=== PATIENT | male | born 1945 | race Two or more races ===

== ENCOUNTER 2018-12-30 10:47 | Inpatient (IN) | payer MEDICARE, OTHER ==
[~2018-12-30] VITALS: Ht 170.2 cm; Wt 112.5 kg
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
[2018-12-30] MEDS ORDERED: IBUPROFEN 600 MG TABLET PO ONE ×2 (12:30→13:00)
--- NOTE | 2018-12-30 12:33 | NUR ---
MOTRIN 600MG GIVEN PO, PER MD ORDER
--- NOTE | 2018-12-30 12:45 | NUR ---
PT TAKEN TO CT VIA [facility]
--- NOTE | 2018-12-30 13:09 | NUR ---
PT BACK FROM [facility]. [facility]. WILL CONT TO MONITOR.
[2018-12-30 15:07] LABS: CALCIUM, SERUM 9.2 mg/dL (8.5-10.1); CARBON DIOXIDE 26 mmol/L (21-32); CHLORIDE 108 mmol/L (98-107); CREATININE 1.1 mg/dL (0.6-1.3); GLUCOSE 99 mg/dL (74-106); POTASSIUM 4.3 mmol/L (3.5-5.1); SODIUM SERUM 139 mmol/L (136-145); UREA NITROGEN, BLOOD 18 mg/dL (7-18)
[2018-12-30 15:19] LABS: B-TYPE NATRIURETIC PEPTIDE 1169 PG/ML (0-125)
[2018-12-30 15:35] LABS: BASOPHILS # (AUTO) 0.1 /CMM (0.0-0.2); BASOPHILS % (AUTO) 1.4 % (0.0-2.0); EOSINOPHILS % (AUTO) 2.8 % (0.0-6.0); HEMATOCRIT 44 % (39-51); HEMOGLOBIN 14.7 g/dL (13.5-17.5); LYMPHOCYTES # (AUTO) 2.6 /CMM (0.8-4.8); LYMPHOCYTES % (AUTO) 33.9 % (20.0-44.0); MEAN CORPUSCULAR HGB CONC 34 g/dl (31.0-36.0); MEAN CORPUSCULAR VOLUME 94 fL (80-96); MONOCYTES # (AUTO) 0.7 /CMM (0.1-1.30); MONOCYTES % (AUTO) 9.7 % (2.0-12.0); NEUTROPHILS % (AUTO) 52.2 % (43.0-81.0); PLATELET COUNT (AUTO) 226 /CMM (150-450); RED BLOOD CELL COUNT(AUTO) 4.65 MIL/uL (4.5-6.0); WHITE BLOOD COUNT (AUTO) 7.7 K/uL (4.3-11.0)
[2018-12-30 15:56] LABS: D-DIMER 0.52 mg/L(FEU (0.17-0.50)
--- NOTE | 2018-12-30 15:59 | NUR ---
PT RESTING COMFORTABLY IN BED, NO COMPLAINTS AT THIS TIME. SPOKE WITH IVELISSE AT [facility] PER PT REQUEST. LET HIM KNOW PT IS HERE AND WE WILL KEEP HIM UPDATED.
[2018-12-30 16:05] LABS: THYROID STIMULATING HORMONE 0.441 uIU/mL (0.358-3.74)
--- NOTE | 2018-12-30 16:55 | NUR ---
BED 111-2 TELE
--- NOTE | 2018-12-30 16:59 | NUR ---
CALLED [facility] FOR PANEL, DR SHAH PAGED @[phone]
--- NOTE | 2018-12-30 17:06 | NUR ---
PROVIDED FOOD TRAY
[2018-12-30] MEDS ORDERED: ASPIRIN 81 MG TAB.CHEW PO ONE (17:30)
[2018-12-30] MEDS ORDERED: FUROSEMIDE 40 MG/4 ML VIAL IV ONE (17:30)
[2018-12-30] MEDS ORDERED: FUROSEMIDE 40 MG/4 ML VIAL ONE (18:20)
[2018-12-30] MEDS ORDERED: ASPIRIN 81 MG TAB.CHEW ONE (18:20)
--- NOTE | 2018-12-30 18:36 | NUR ---
PT TRANSFERRED TO FLOOR AND BEDSIDE REPORT GIVEN TO EVA FOR LARISA.
--- NOTE | 2018-12-30 18:38 | NUR ---
REBAR WORKER NOTES BEDSIDE REPORT GIVEN FROM NURSE AYAKA CASTAÑEDA. PATIENT ARRIVED VIA [facility] IN ROOM. C/O PAIN 6/10 TO NECK BACK. A/O X4 NO SIGNS OR SYMPTOMS OF RESPIRATORY DISTRESS VITAL SIGNS BP 128/81 HR 65 O2 96% T 98.1 RR 18 . TELE BOX APPLIED HEAT PACK GIVEN FOR NECK DISCOMFORT. SAFETY PRECAUTIONS IN PLACE BED IN LOW POSITION CALL LIGHT WITHIN REACH . WILL ENDORSE TO NOC
--- NOTE | 2018-12-30 18:42 | NUR ---
dr. treadwell notified regarding admission order.
[2018-12-30] MEDS ORDERED: ONDANSETRON HCL/PF 4 MG/2 ML VIAL IVP PRN (19:00)
[2018-12-30] MEDS ORDERED: MORPHINE SULFATE INJ 2 MG/ML DISP.SYRIN IV PRN (19:00)
[2018-12-30] MEDS ORDERED: NITROGLYCERIN 0.4 MG/TAB BOTTLE SL PRN (19:00)
--- NOTE | 2018-12-30 19:06 | NUR ---
MAINTAINER PLANT CLOSING NOTES REPORT GIVEN TO NOC RN. ORDERS FROM DR FERGUSON ENDORSED. LARISA
[2018-12-30 20:00] VITALS: BP 119/86
[2018-12-30] MEDS: METOPROLOL TARTRATE 25 MG TABLET PO SCH (20:36)
[2018-12-31] VITALS (7 sets, daily range): BP systolic 99–145; BP diastolic 54–87
[2018-12-31] MEDS ORDERED: ZOLPIDEM TARTRATE 5 MG TABLET PO PRN (01:00)
[2018-12-31] MEDS: MENTHOL/CETYLPYRD (CEPACOL) 1 LOZ LOZENGE PO PRN ×2 (01:01→11:24)
[2018-12-31] MEDS: HYDROCODONE/APAP 5/325MG 1 EACH TABLET PO PRN ×4 (01:01→20:36)
[2018-12-31 02:59] LABS: BASOPHILS # (AUTO) 0.1 /CMM (0.0-0.2); BASOPHILS % (AUTO) 1.1 % (0.0-2.0); EOSINOPHILS % (AUTO) 3.7 % (0.0-6.0); HEMATOCRIT 40 % (39-51); HEMOGLOBIN 13.8 g/dL (13.5-17.5); LYMPHOCYTES # (AUTO) 2.3 /CMM (0.8-4.8); LYMPHOCYTES % (AUTO) 34.8 % (20.0-44.0); MEAN CORPUSCULAR HGB CONC 34 g/dl (31.0-36.0); MEAN CORPUSCULAR VOLUME 92 fL (80-96); MONOCYTES # (AUTO) 0.8 /CMM (0.1-1.30); MONOCYTES % (AUTO) 12.7 % (2.0-12.0); NEUTROPHILS # (AUTO) 3.2 /CMM (1.8-8.9); NEUTROPHILS % (AUTO) 47.7 % (43.0-81.0); PLATELET COUNT (AUTO) 220 /CMM (150-450); RED BLOOD CELL COUNT(AUTO) 4.35 MIL/uL (4.5-6.0); WHITE BLOOD COUNT (AUTO) 6.7 K/uL (4.3-11.0)
[2018-12-31 03:10] LABS: CALCIUM, SERUM 8.9 mg/dL (8.5-10.1); CARBON DIOXIDE 25 mmol/L (21-32); CHLORIDE 106 mmol/L (98-107); GLUCOSE 102 mg/dL (74-106); MAGNESIUM 1.9 mg/dL (1.8-2.4); POTASSIUM 4.1 mmol/L (3.5-5.1); SODIUM SERUM 142 mmol/L (136-145); UREA NITROGEN, BLOOD 22 mg/dL (7-18)
--- NOTE | 2018-12-31 07:10 | NUR ---
ECONOMICS FACULTY MEMBER OPENING NOTES RECEIVED PT LYING ON BED.ALERT/ORIENTED X4.ON TELE HR IS 86 WITH SR.ON ROOM AIR,TOLERATING WELL.NO SOB AND ACUTE DISTRESS NOTED.IV LINE IS ON LEFT AC G20,SITE IS CLEAN,DRY AND INTACT.NO INFILTRATION NOTED.SAFETY IS MAINTAINED AT ALL TIMES.BED IS IN LOW POSITION AND LOCKED.CALL LIGHT IS WITHIN REACH.WILL CONTINUE TO MONITOR THE PT CLOSELY.
[2018-12-31] MEDS: ASPIRIN 81 MG TAB.CHEW PO SCH (08:07)
[2018-12-31] MEDS: METOPROLOL TARTRATE 25 MG TABLET PO SCH (08:07)
[2018-12-31] MEDS: FUROSEMIDE 40 MG/4 ML VIAL IV SCH (11:15)
[2018-12-31] MEDS ORDERED: GABA-534 PO (14:35)
[2018-12-31] MEDS ORDERED: BUSP10TA3 PO (14:35)
[2018-12-31] MEDS ORDERED: FERR325T23 PO (14:35)
[2018-12-31] MEDS ORDERED: ASPI-1169 PO (14:35)
[2018-12-31] MEDS ORDERED: ESOM40CA PO (14:35)
[2018-12-31] MEDS ORDERED: LEVO150T8 PO (14:35)
[2018-12-31] MEDS ORDERED: FLUT1BLS IH (14:35)
[2018-12-31] MEDS ORDERED: METO50TA16 PO (14:35)
[2018-12-31] MEDS ORDERED: ATOR20TA PO (14:35)
[2018-12-31] MEDS ORDERED: CLON1TAB12 PO (14:36)
[2018-12-31] MEDS ORDERED: LEVOTHYROXINE SODIUM 75 MCG TABLET PO SCH (15:00)
[2018-12-31] MEDS ORDERED: GABAPENTIN 300 MG CAPSULE PO SCH (15:00)
[2018-12-31] MEDS: FLUTICASONE/VILANTEROL 1 EACH BLST.W.DEV IH SCH (16:07)
[2018-12-31] MEDS: busPIRone 5 MG TABLET PO SCH (16:11)
[2018-12-31] MEDS: PANTOPRAZOLE 40 MG TABLET.DR PO SCH (16:11)
[2018-12-31] MEDS: METOPROLOL TARTRATE 50 MG TABLET PO SCH (16:11)
[2018-12-31] MEDS ORDERED: IOHEXOL-350 100 ML VIAL IV ONE (16:45)
[2018-12-31] MEDS ORDERED: IV NS 0.9% 250 ML IV ONE (16:46)
[2018-12-31] MEDS ORDERED: CT SWABBABLE VALVE TRANS SET 1 EA INFUS.SET MC ONE (16:46)
[2018-12-31] MEDS ORDERED: METOPROLOL TARTRATE INJ 5 MG/5 ML AMPUL IVP ONE (17:00)
[2018-12-31] MEDS ORDERED: NITROGLYCERIN 0.4 MG/TAB BOTTLE SL ONE (17:00)
[2018-12-31] MEDS ORDERED: IV NS 0.9% 500 ML IV PRN (17:00)
--- NOTE | 2018-12-31 17:44 | NUR ---
started CTA, given 5 mg of metoprolol, were having problem on the machine dynamap re: HR fluctuating from 60's to 80's. about to give second dose of metoprolol 5 mg, but decided not to do it anymore by [employer] and notified jovanni Hernandez, wasted 5mg of metoprolol Addendum: 12/31/18 at 1748 by HERNAN NATHAN RN Amended: Links added.
--- NOTE | 2018-12-31 17:56 | NUR ---
172. started CTA with 5 mg of metoprolol, about to give second dose of metoprolol at 172 when the dynamap from CT havinf problem with the HR, fluctuating from 60's to 80's. [employer] notifoed the radiology doctor and JIL urby and decided not to do it/ not to finish the test. they notified biomed to fix the dynamap and maybe they can do the test tomorrow. wasted 5 mg of metoprolol.
--- NOTE | 2018-12-31 17:59 | NUR ---
ABOUT TO START THE CTA HEART SCAN AND WE'RE HAVING ECG MALFUNCTION, INFORMED NURSING ASSISTANT SIGNAL MAINTAINER (MARIE) AND THE NURSE (FAITH).
--- NOTE | 2018-12-31 18:55 | NUR ---
ORNAMENTAL PLASTERER HELPER CLOSING NOTES PT IS LYING ON BED.NO LARISA IS NOTED.ENDORSED TO FOOTWEAR PRODUCTION MACHINE OPERATOR RN FOR LARISA.
[2018-12-31] MEDS: GABAPENTIN 300 MG CAPSULE PO SCH (20:36)
[2018-12-31] MEDS: ATORVASTATIN 10 MG TABLET PO SCH (20:47)
[2018-12-31] MEDS ORDERED: MAGNESIUM HYDROXIDE 30 ML UDC PO PRN (21:00)
[2018-12-31] MEDS ORDERED: MAG HYDROX/AL HYDROX/SIMETH 30 ML UDC PO PRN (21:30)
[2019-01-01] VITALS: BP 133/79
[2019-01-01 04:00] VITALS: BP 118/70
[2019-01-01] MEDS: LEVOTHYROXINE SODIUM 75 MCG TABLET PO SCH (05:55)
[2019-01-01] MEDS: GABAPENTIN 300 MG CAPSULE PO SCH ×2 (07:22→20:41)
[2019-01-01] MEDS: PANTOPRAZOLE 40 MG TABLET.DR PO SCH (07:22)
--- NOTE | 2019-01-01 07:30 | NUR ---
INITIAL RECEIVED PATIENT IN BED AWAKE, A&Ox4 PT ON TIMOTHY AFIB HR 99. PATIENT DOING SELF CARE, HAS A LEFT FORE ARM 20G , INTACT PATENT AND SALINE FLUSHED. PATIENT ASKED TO GIVE BATHING UTILITIES. LINEN CHANGED WITH NEW GOWN. . BED LOCKED AND ON LOW POSITION. CALL LIGHT WITHIN REACH. WILL CONTINUE TO MONITOR
[2019-01-01 08:00] VITALS: BP 99/78
[2019-01-01] MEDS ORDERED: ASPIRIN 81 MG TAB.CHEW PO SCH (09:00)
[2019-01-01] MEDS: FLUTICASONE/VILANTEROL 1 EACH BLST.W.DEV IH SCH (09:42)
[2019-01-01] MEDS: ASPIRIN 81 MG TAB.CHEW PO SCH (09:43)
[2019-01-01] MEDS: FUROSEMIDE 40 MG/4 ML VIAL IV SCH (09:43)
[2019-01-01] MEDS: busPIRone 5 MG TABLET PO SCH ×2 (09:44→17:53)
[2019-01-01] MEDS: METOPROLOL TARTRATE 50 MG TABLET PO SCH ×2 (09:45→17:53)
[2019-01-01 12:00] VITALS: BP 127/57
[2019-01-01 16:00] VITALS: BP 100/65
[2019-01-01] MEDS: ATORVASTATIN 10 MG TABLET PO SCH (17:53)
--- NOTE | 2019-01-01 19:15 | NUR ---
TELE/RN INITIAL NOTES RECEIVED PT IN BED, A/OX4. ON ROOM AIR, NO SOB NOTED. AFIB HR 70S ON TELE. NO C/O PAIN AT THIS TIME. LEFT AC G20 HEPLOCK INTACT AND PATENT. SAFETY MEASURES IN PLACED. CALL LIGHT WITHIN EASY REACH. WILL CONT TO MONITOR
[2019-01-01 20:00] VITALS: BP 118/70
[2019-01-01] MEDS: HYDROCODONE/APAP 5/325MG 1 EACH TABLET PO PRN (20:41)
[2019-01-01] MEDS: MENTHOL/CETYLPYRD (CEPACOL) 1 LOZ LOZENGE PO PRN (20:41)
[2019-01-01] MEDS: clonazePAM 1 MG TABLET PO PRN (23:41)
[2019-01-02] VITALS: BP 118/63
[2019-01-02 04:00] VITALS: BP 119/80
[2019-01-02] MEDS: LEVOTHYROXINE SODIUM 75 MCG TABLET PO SCH (06:13)
--- NOTE | 2019-01-02 06:43 | NUR ---
RN NOTES PT IN STABLE CONDITION. NO ACUTE CHANGES THROUGHOUT SHIFT NOTED. ALL NEEDS ANTICIPATED. ENDORSED TO AM SHIFT RN FOR LARISA
[2019-01-02] MEDS: GABAPENTIN 300 MG CAPSULE PO SCH ×2 (07:46→19:57)
[2019-01-02] MEDS: PANTOPRAZOLE 40 MG TABLET.DR PO SCH (07:46)
[2019-01-02 08:00] VITALS: BP_SYST 126; BP_DIAS 80; BP_DIAS 90
[2019-01-02] MEDS: FLUTICASONE/VILANTEROL 1 EACH BLST.W.DEV IH SCH (09:01)
[2019-01-02] MEDS: METOPROLOL TARTRATE 50 MG TABLET PO SCH ×2 (09:02→16:16)
[2019-01-02] MEDS: ASPIRIN 81 MG TAB.CHEW PO SCH (09:02)
[2019-01-02] MEDS: busPIRone 5 MG TABLET PO SCH ×2 (09:02→16:16)
[2019-01-02] MEDS: FUROSEMIDE 40 MG/4 ML VIAL IV SCH (09:02)
[2019-01-02 12:00] VITALS: BP 102/58
--- NOTE | 2019-01-02 14:01 | NUR ---
TEXTED DR. RAMIREZ FOR MRI APPROVAL.
[2019-01-02 16:00] VITALS: BP 115/63
[2019-01-02] MEDS: ATORVASTATIN 10 MG TABLET PO SCH (18:38)
[2019-01-02] MEDS: MENTHOL/CETYLPYRD (CEPACOL) 1 LOZ LOZENGE PO PRN (19:57)
[2019-01-02 20:00] VITALS: BP 105/70
--- NOTE | 2019-01-02 20:10 | NUR ---
MS-1/PATIENT SERVICES TECHNICIAN PT OFF FLOOR TO MRA WITH MRA TECH.
--- NOTE | 2019-01-02 20:24 | NUR ---
MS-1/LITIGATION EXAMINER PT BACK FROM MRA. PER MRA TECH PT IS TO LARGE TO COMPLETE SCAN. WILL ENDORSE TO WATCHER LOOKOUT TOWER MD. PT BACK IN BED.
[2019-01-02] MEDS: HYDROCODONE/APAP 5/325MG 1 EACH TABLET PO PRN (22:12)
[2019-01-02] MEDS: clonazePAM 1 MG TABLET PO PRN (22:12)
[2019-01-03 04:00] VITALS: BP_SYST 111; BP_SYST 130; BP_DIAS 60; BP_DIAS 80
[2019-01-03] MEDS: LEVOTHYROXINE SODIUM 75 MCG TABLET PO SCH (06:21)
--- NOTE | 2019-01-03 07:15 | NUR ---
MS RN OPENING NOTES RECEIVED PT LYING ON BED.ALERT/ORIENTED X4.ON ROOM AIR,TOLERATING WELL.NO SOB AND ACUTE DISTRESS NOTED.IV LINE IS ON LEFT AC G20,SITE IS CLEAN,DRY AND INTACT.NO INFILTRATION NOTED.SAFETY IS MAINTAINED AT ALL TIMES.BED IS IN LOW POSITION AND LOCKED.CALL LIGHT IS WITHIN REACH.WILL CONTINUE TO MONITOR THE PT CLOSELY
[2019-01-03] MEDS: PANTOPRAZOLE 40 MG TABLET.DR PO SCH (07:42)
[2019-01-03 08:00] VITALS: BP 117/65
[2019-01-03] MEDS: GABAPENTIN 300 MG CAPSULE PO SCH ×2 (08:16→20:45)
[2019-01-03] MEDS: FUROSEMIDE 40 MG/4 ML VIAL IV SCH (08:51)
[2019-01-03] MEDS: busPIRone 5 MG TABLET PO SCH ×2 (08:51→17:53)
[2019-01-03] MEDS: FLUTICASONE/VILANTEROL 1 EACH BLST.W.DEV IH SCH (08:52)
[2019-01-03] MEDS: ASPIRIN 81 MG TAB.CHEW PO SCH (08:52)
[2019-01-03] MEDS: METOPROLOL TARTRATE 50 MG TABLET PO SCH ×2 (08:52→17:53)
[2019-01-03 16:00] VITALS: BP 113/66
[2019-01-03] MEDS: MENTHOL/CETYLPYRD (CEPACOL) 1 LOZ LOZENGE PO PRN (18:17)
[2019-01-03] MEDS: ATORVASTATIN 10 MG TABLET PO SCH (18:17)
--- NOTE | 2019-01-03 18:58 | NUR ---
MS RN CLOSING NOTES PT IS SITTING ON THE BED.IV LINE IS IN PLACE.ALL THE DUE MEDS ARE GIVEN.NO SIGNIFICANT CHANGES NOTED IN THE SHIFT.ENDORSED TO NEXT SHIFT MADDY PERES.
[2019-01-03 20:00] VITALS: BP 125/75
[2019-01-03 20:23] VITALS: BP 125/75
[2019-01-03] MEDS: clonazePAM 1 MG TABLET PO PRN (20:58)
[2019-01-03] MEDS: HYDROCODONE/APAP 5/325MG 1 EACH TABLET PO PRN (22:04)
[2019-01-04 04:00] VITALS: BP 130/80
[2019-01-04 04:05] VITALS: BP 130/80
[2019-01-04] MEDS: LEVOTHYROXINE SODIUM 75 MCG TABLET PO SCH (05:38)
--- NOTE | 2019-01-04 06:30 | NUR ---
MS RN CLOSING NOTES, PATIENT SLEEPING AT THIS TIME, BREATHING EVEN AND UNLABORED, NO SOB/ACUTE DISTRESS NOTED, NO C/O CHEST PAIN OR DISCOMFORT, IV LINE LEFT AC 20G S/L IS IN PLACE, ALL NEEDS PROVIDED, NO SIGNIFICANT CHANGE IN CONDITION DURING THE NIGHT, WILL ENDORSE CONTINUITY OF CARE TO ONCOMING NURSE.
--- NOTE | 2019-01-04 07:00 | NUR ---
MS RN OPENING NOTES RECEIVED PT LYING ON BED. ALERT/ORIENTED X4. ON ROOM AIR, TOLERATING WELL. NO SOB AND ACUTE DISTRESS NOTED. PATIENT REPORTED NO PAIN. IV LINE IS ON LEFT AC G20, SITE IS CLEAN, DRY AND INTACT. NO INFILTRATION NOTED. SAFETY IS MAINTAINED AT ALL TIMES. BED IS IN LOW POSITION AND LOCKED. CALL LIGHT IS WITHIN REACH. WILL CONTINUE TO MONITOR THE PT CLOSELY.
[2019-01-04 08:00] VITALS: BP 137/70
[2019-01-04] MEDS: PANTOPRAZOLE 40 MG TABLET.DR PO SCH (08:41)
[2019-01-04] MEDS: GABAPENTIN 300 MG CAPSULE PO SCH ×2 (09:00→20:36)
[2019-01-04] MEDS: busPIRone 5 MG TABLET PO SCH ×2 (09:45→16:18)
[2019-01-04] MEDS: FUROSEMIDE 40 MG/4 ML VIAL IV SCH (09:45)
[2019-01-04] MEDS: ASPIRIN 81 MG TAB.CHEW PO SCH (09:45)
[2019-01-04] MEDS: METOPROLOL TARTRATE 50 MG TABLET PO SCH ×2 (09:45→17:10)
[2019-01-04] MEDS: FLUTICASONE/VILANTEROL 1 EACH BLST.W.DEV IH SCH (09:45)
[2019-01-04] MEDS ORDERED: IOHEXOL-350 100 ML VIAL IV ONE (09:51)
[2019-01-04] MEDS ORDERED: IV NS 0.9% 250 ML IV ONE (09:51)
[2019-01-04 12:00] VITALS: BP 137/70
[2019-01-04 16:00] VITALS: BP 125/65
[2019-01-04] MEDS: HYDROCODONE/APAP 5/325MG 1 EACH TABLET PO PRN (16:18)
[2019-01-04] MEDS: ATORVASTATIN 10 MG TABLET PO SCH (17:13)
--- NOTE | 2019-01-04 19:20 | NUR ---
MS RN CLOSING NOTES PT RESTING IN BED. ALERT/ORIENTED X4. ON ROOM AIR, TOLERATING WELL. NO SOB AND ACUTE DISTRESS NOTED. PATIENT REPORTED NO PAIN. IV LINE IS ON LEFT AC G20, SITE IS CLEAN, DRY AND INTACT. NO INFILTRATION NOTED. SAFETY WAS MAINTAINED AT ALL TIMES. BED IS IN LOW POSITION AND LOCKED. CALL LIGHT IS WITHIN REACH. NO ACUTE CHANGES THROUGHOUT SHIFT. ENDORSED TO ANIMAL NURSE NURSE FOR LARISA.
--- NOTE | 2019-01-04 19:58 | NUR ---
MS RN INITIAL NOTES, PATIENT AWAKE, A/O X4 ABLE TO VERBALIZED NEEDS AND CONCERNS, , BREATHING EVEN AND UNLABORED, NO SOB/ACUTE DISTRESS NOTED, NO C/O CHEST PAIN OR DISCOMFORT, IV LINE LEFT AC 20G S/L IS IN PLACE, ALL NEEDS PROVIDED, WILL BE NPO AFTER MIDNIGHT FOR CT ANGIOGRAM IN THE MORNING, INFORMED PATIENT AND VERBALIZED UNDERSTANDING, ALL SAFETY MEASURES IN PLACED, BE LOCKED AN D LOW POSITION, CALL LIGHT W/I REACH, WILL CONTINUE TO MONITOR CLOSELY.
[2019-01-04 20:00] VITALS: BP 118/97
[2019-01-04] MEDS: clonazePAM 1 MG TABLET PO PRN (20:35)
[2019-01-05 04:00] VITALS: BP 112/73
[2019-01-05] MEDS: LEVOTHYROXINE SODIUM 75 MCG TABLET PO SCH (05:35)
--- NOTE | 2019-01-05 06:26 | NUR ---
MS RN CLOSING NOTES, PATIENT SLEEPING AT THIS TIME, BREATHING EVEN AND UNLABORED, NO SOB/ACUTE DISTRESS NOTED, NO C/O CHEST PAIN OR DISCOMFORT, IV LINE LEFT AC 20G S/L IS IN PLACE, ALL NEEDS PROVIDED, NO SIGNIFICANT CHANGE IN CONDITION DURING THE NIGHT, NPO SINCE MIDNIGHT FOR CT ANGIOGRAM IN AM, WILL ENDORSE CONTINUITY OF CARE TO ONCOMING NURSE.
[2019-01-05] MEDS: PANTOPRAZOLE 40 MG TABLET.DR PO SCH (07:30)
--- NOTE | 2019-01-05 07:45 | NUR ---
MS RN OPENING NOTE RECEIVED PATIENT IN BED. ALERT ORIENTED X4. ON ROOM AIR, TOLERATING WELL. IN NO APPARENT DISTRESS OR DISCOMFORT AT THIS TIME. RESPIRATIONS EVEN AND UNLABORED. DENIES CHEST PAIN OR SOB. PATIENT IS ABLE TO COMMUNICATE NEEDS. IV ACCESS ON LEFT AC, SL, PATENT AND INTACT. PATIENT KEPT CLEAN AND COMFORTABLE, NPO STATUS. SAFETY MEASURES IN PLACE, BED IN LOW LOCKED POSITION SIDE RAILS UP X2, CALL LIGHT WITHIN EASY REACH. WILL CONTINUE TO MONITOR.
[2019-01-05 08:00] VITALS: BP 122/66
[2019-01-05] MEDS: GABAPENTIN 300 MG CAPSULE PO SCH ×2 (08:00→20:59)
[2019-01-05] MEDS: ASPIRIN 81 MG TAB.CHEW PO SCH (09:00)
[2019-01-05] MEDS: busPIRone 5 MG TABLET PO SCH ×2 (09:00→17:23)
[2019-01-05] MEDS: METOPROLOL TARTRATE 50 MG TABLET PO SCH ×2 (09:00→17:23)
[2019-01-05] MEDS: FLUTICASONE/VILANTEROL 1 EACH BLST.W.DEV IH SCH (09:26)
[2019-01-05] MEDS: FUROSEMIDE 40 MG/4 ML VIAL IV SCH (09:26)
[2019-01-05] MEDS ORDERED: REGADENOSON 0.4 MG/5 ML DISP.SYRIN IVP ONE (11:00)
[2019-01-05 16:00] VITALS: BP 115/67
[2019-01-05] MEDS: HYDROCODONE/APAP 5/325MG 1 EACH TABLET PO PRN (17:23)
[2019-01-05] MEDS: ATORVASTATIN 10 MG TABLET PO SCH (17:23)
--- NOTE | 2019-01-05 18:31 | NUR ---
MS RN CLOSING NOTE PATIENT IN BED. ALERT ORIENTED X4. ON ROOM AIR, TOLERATING WELL. IN NO APPARENT DISTRESS OR DISCOMFORT AT THIS TIME. RESPIRATIONS EVEN AND UNLABORED. DENIES CHEST PAIN OR SOB. PATIENT IS ABLE TO COMMUNICATE NEEDS. IV ACCESS ON LEFT AC 20G, SL, PATENT AND INTACT. PATIENT KEPT CLEAN AND COMFORTABLE, ALL NEEDS ATTENDED, ORDERS RENDERED. SAFETY MEASURES IN PLACE, BED IN LOW LOCKED POSITION SIDE RAILS UP X2, CALL LIGHT WITHIN EASY REACH. WILL ENDORSE TO PM NURSE FOR LARISA.
[2019-01-05 20:00] VITALS: BP 113/75
[2019-01-05] MEDS: clonazePAM 1 MG TABLET PO PRN (20:59)
[2019-01-06 04:00] VITALS: BP 104/70
[2019-01-06] MEDS: LEVOTHYROXINE SODIUM 75 MCG TABLET PO SCH (06:01)
--- NOTE | 2019-01-06 06:15 | NUR ---
MS RN CLOSING NOTES, PATIENT SLEEPING AT THIS TIME, BREATHING EVEN AND UNLABORED, NO SOB/ACUTE DISTRESS NOTED, NO C/O CHEST PAIN OR DISCOMFORT, IV LINE LEFT AC 20G S/L IN PLACE, ALL NEEDS PROVIDED, NO SIGNIFICANT CHANGE IN CONDITION DURING THE NIGHT, NPO SINCE MIDNIGHT FOR POSSIBLE CT ANGIOGRAM IN AM, WILL ENDORSE CONTINUITY OF CARE TO ONCOMING NURSE.
--- NOTE | 2019-01-06 07:00 | NUR ---
RECEIVED PATIENT IN BED. ALERT ORIENTED X4. ON ROOM AIR, TOLERATING WELL. RESPIRATIONS EVEN AND UNLABORED. DENIES CHEST PAIN OR SOB. PATIENT IS ABLE TO COMMUNICATE NEEDS. IV ACCESS ON LEFT AC, SL, PATENT AND INTACT FLUSHING WELL. NPO STATUS EOR POSSIBLE PROCEDURE. SAFETY MEASURES IN PLACE, BED IN LOW LOCKED POSITION SIDE RAILS UP X2, CALL LIGHT WITHIN EASY REACH.PT AMBULATORY. WILL CONTINUE TO MONITOR
[2019-01-06 08:00] VITALS: BP 122/66
[2019-01-06] MEDS: ASPIRIN 81 MG TAB.CHEW PO SCH (08:16)
[2019-01-06] MEDS: busPIRone 5 MG TABLET PO SCH ×2 (08:17→17:38)
[2019-01-06] MEDS: GABAPENTIN 300 MG CAPSULE PO SCH ×2 (08:17→20:20)
[2019-01-06] MEDS: METOPROLOL TARTRATE 50 MG TABLET PO SCH ×2 (08:18→17:37)
[2019-01-06] MEDS: FUROSEMIDE 40 MG/4 ML VIAL IV SCH (08:18)
[2019-01-06] MEDS: PANTOPRAZOLE 40 MG TABLET.DR PO SCH (08:18)
[2019-01-06] MEDS: FLUTICASONE/VILANTEROL 1 EACH BLST.W.DEV IH SCH (08:26)
[2019-01-06] MEDS ORDERED: IOHEXOL-350 100 ML VIAL IV ONE (12:30)
[2019-01-06] MEDS ORDERED: CT SWABBABLE VALVE TRANS SET 1 EA INFUS.SET MC ONE (12:30)
[2019-01-06] MEDS ORDERED: IV NS 0.9% 500 ML IV ONE (12:31)
[2019-01-06 16:00] VITALS: BP 109/62
[2019-01-06] MEDS: ATORVASTATIN 10 MG TABLET PO SCH (17:37)
[2019-01-06] MEDS: MENTHOL/CETYLPYRD (CEPACOL) 1 LOZ LOZENGE PO PRN (18:42)
[2019-01-06] MEDS: DOCUSATE SODIUM 100 MG CAPSULE PO SCH (18:42)
--- NOTE | 2019-01-06 19:00 | NUR ---
PATIENT IN BED, WATCHING TV. ALL NEEDS ATTENDED . NO CHANGES DURING THE SHIFT. POSSSIBLE D/C TOMORROW. SAFETY PRECAUTIONS OBSERVED. WILL ENDORSE TO NEXT SHIFT FOR LARISA.
[2019-01-06 20:00] VITALS: BP 122/69
[2019-01-06] MEDS: clonazePAM 1 MG TABLET PO PRN (21:29)
[2019-01-06] MEDS: HYDROCODONE/APAP 5/325MG 1 EACH TABLET PO PRN (22:25)
[2019-01-07 04:00] VITALS: BP_SYST 122; BP_SYST 95; BP_DIAS 65; BP_DIAS 72
[2019-01-07] MEDS: LEVOTHYROXINE SODIUM 75 MCG TABLET PO SCH (06:20)
--- NOTE | 2019-01-07 07:20 | NUR ---
MS RN NOTES PATIENT IN BED ALERT ORIENTED X 4. NO ACUTE DISTRESS NOTED. BREATHING UNLABORED. NO SOB NOTED. DENIED ANY PAIN. IV ACCESS PATENT AND INTACT, NO REDNESS NO SWELLING NOTED. SAFETY MEASURES IN PLACE. CALL LIGHT WITHIN REACH. WILL CONTINUE TO MONITOR ACCORDINGLY.
[2019-01-07 08:00] VITALS: BP 107/77
[2019-01-07] MEDS: PANTOPRAZOLE 40 MG TABLET.DR PO SCH (08:14)
[2019-01-07] MEDS: DOCUSATE SODIUM 100 MG CAPSULE PO SCH ×2 (08:14→17:00)
[2019-01-07] MEDS: busPIRone 5 MG TABLET PO SCH ×2 (08:14→17:08)
[2019-01-07] MEDS: GABAPENTIN 300 MG CAPSULE PO SCH (08:14)
[2019-01-07] MEDS: ASPIRIN 81 MG TAB.CHEW PO SCH (08:14)
[2019-01-07] MEDS: METOPROLOL TARTRATE 50 MG TABLET PO SCH ×2 (08:15→17:09)
[2019-01-07] MEDS: FUROSEMIDE 40 MG/4 ML VIAL IV SCH (08:15)
[2019-01-07] MEDS: FLUTICASONE/VILANTEROL 1 EACH BLST.W.DEV IH SCH (09:17)
[2019-01-07 12:00] VITALS: BP 128/76
[2019-01-07] MEDS: HYDROCODONE/APAP 5/325MG 1 EACH TABLET PO PRN ×2 (13:28→20:12)
--- NOTE | 2019-01-07 13:29 | NUR ---
RN NOTE NURSE ON BREAK, RN RELIVING NURSE GAVE PAIN MEDICATION PER MD ORDER. PATIENTS NURSE AWARE.
[2019-01-07 16:00] VITALS: BP 120/61
[2019-01-07] MEDS: ATORVASTATIN 10 MG TABLET PO SCH (17:08)
[2019-01-07 17:09] VITALS: BP 120/61
--- NOTE | 2019-01-07 19:00 | NUR ---
MS RN NOTES PATIENT IN BED ALERT ORIENTED X 4. NO ACUTE DISTRESS NOTED. BREATHING UNLABORED. NO SOB NOTED. DENIED ANY PAIN. IV ACCESS PATENT AND INTACT, NO REDNESS NO SWELLING NOTED. DUE MEDICATIONS GIVEN, NO ASE NOTED. NEEDS ATTENDED AND ANTICIPATED. KEPT CLEAN DRY AND COMFORTABLE. SAFETY MEASURES IN PLACE. CALL LIGHT WITHIN REACH. PATIENT FOR DISCHARGE AWAITING FOR TRANSPORTATION. REPORT GIVEN TO DIMITRI CASTAÑEDA OF [facility]. ENDORSED TO NIGHT NURSE TO CONTINUITY OF CARE AND DISCHARGE.
--- NOTE | 2019-01-07 20:00 | NUR ---
MS RN NOTES PT FOR DISCHARGE TO [facility]. AWAITING FOR AMBULANCE. DISCHARGE INSTRUCTIONS PROVIDED. PT UNDERSTOOD IT WELL. VSS. AFEBRILE. SKIN INTACT. WILL CONTINUE TO MONITOR.
--- NOTE | 2019-01-07 20:12 | NUR ---
MS RN NOTES PT C/O FAY. 05/12. NORCO GIVEN ORDERED. WILL CONTINUE TO MONITOR.
--- NOTE | 2019-01-07 20:28 | NUR ---
MS RN NOTES AMBULANCE CAME TO PICK HIM UP. REPORT GIVEN TO AMBULANCE PERSONNEL FOR CONTINUITY OF CARE. IV-HL D/CD. PT TOLERATED WELL. NOT IN ANY DISTRESS. NO SOB NOTED. DENIES ANY PAIN OR DISCOMFORT AT THIS TIME. PT LEFT THE FACILITY IN FAIR & STABLE CONDITION.
== END 2019-01-07 20:30 | DRG 291 ==
LOC: ER 10:58 → TELE1 17:51 → MEDSG1 01-02 17:04
PROVIDERS: ADMIT Internal Medicine; ATTEND Nurse Practitioner Acute Care
DX: I11.0 Hypertensive heart disease with heart failure (principal); I50.31 Acute diastolic (congestive) heart failure; E43 Unspecified severe protein-calorie malnutrition; I87.1 Compression of vein; E03.9 Hypothyroidism, unspecified; Z68.39 Body mass index [BMI] 39.0-39.9, adult; E78.5 Hyperlipidemia, unspecified; I48.91 Unspecified atrial fibrillation; Z87.891 Personal history of nicotine dependence; Z68.38 Body mass index [BMI] 38.0-38.9, adult; G47.33 Obstructive sleep apnea (adult) (pediatric); K44.9 Diaphragmatic hernia without obstruction or gangrene; V49.9XXA Car occupant (driver) (passenger) injured in unspecified traffic accident, initial encounter; Y93.9 Activity, unspecified; Y92.410 Unspecified street and highway as the place of occurrence of the external cause; I25.110 Atherosclerotic heart disease of native coronary artery with unstable angina pectoris
CPT/HCPCS: 36415; 70450-TC; 71045-TC; 71270-TC; 72125-TC; 72131-TC; 75574; 80048-TC; 83735-TC; 83880; 84439-TC; 84443-TC; 84484-TC; 85025-TC; 85378-TC; 85730-TC; 87081-TC; 93307-TC; 93970-TC; A9502; G0378; J1940; J2785; J3490; J7040; J7050; Q9967

== ENCOUNTER 2022-07-31 21:32 | Emergency (ER) | payer OTHER ==
[~2022-07-31] VITALS: Ht 157.5 cm; Wt 125.6 kg
[~2022-07-31 21:32] MED LIST: ASPI-1169 PO; ATOR20TA PO; BUSP10TA3 PO; CLON1TAB12 PO; ESOM40CA PO; FERR325T23 PO; FLUT1BLS IH; GABA-534 PO; LEVO150T8 PO; METO50TA16 PO
[2022-07-31 21:43] VITALS: BP 145/76
[2022-07-31] MEDS ORDERED: KETOROLAC TROMETHAMINE INJ 60 MG/2 ML VIAL IM ONE (23:00)
[2022-07-31] MEDS ORDERED: ONDANSETRON 4 MG TAB.RAPDIS SL ONE (23:00)
[2022-07-31] MEDS ORDERED: HYDROMORPHONE 1 MG/1 ML DISP.SYRIN IM ONE (23:00)
[2022-07-31] MEDS ORDERED: HYDR-4209 PO (23:05)
[2022-07-31] MEDS ORDERED: KETOROLAC TROMETHAMINE INJ 30 MG/ML VIAL ONE (23:06)
[2022-07-31] MEDS ORDERED: HYDROMORPHONE 1 MG/1 ML DISP.SYRIN ONE (23:06)
[2022-07-31] MEDS ORDERED: ONDANSETRON 4 MG TAB.RAPDIS ONE (23:07)
--- NOTE | 2022-07-31 23:09 | NUR ---
[facility] CALLED FOR BLS PER TERRIE ETA 2 HOURS
--- NOTE | 2022-07-31 23:13 | NUR ---
REPORT GIVEN TO NURSE AT [facility]
--- NOTE | 2022-08-01 00:11 | NUR ---
Report given to S rig. Pt will be transfered back to facility.
== END 2022-08-01 00:15 ==
LOC: ER 21:37
DX: G89.29 Other chronic pain (principal); M54.50 Low back pain, unspecified; I11.0 Hypertensive heart disease with heart failure; I50.9 Heart failure, unspecified; I48.91 Unspecified atrial fibrillation; E03.9 Hypothyroidism, unspecified; Z79.899 Other long term (current) drug therapy
CPT/HCPCS: 99284; 96372 ×2; J1885; Q0162; J1170

== ENCOUNTER 2022-08-17 10:59 | Emergency (ER) | payer MEDICARE, OTHER ==
[~2022-08-17] VITALS: Ht 172.7 cm; Wt 115.7 kg
[~2022-08-17 10:59] MED LIST changes: +HYDR-4209 PO
--- NOTE | 2022-08-17 11:32 | NUR ---
PT CT SCAN TO HEAD DONE.
--- NOTE | 2022-08-17 14:34 | NUR ---
CALLED [facility] AND SPOKE WITH WILNER. ARRANGED BLS TRANSPORT. ETA IS 45 -60 MIN
--- NOTE | 2022-08-17 15:22 | NUR ---
Patient discharged to facility in stable condition. Written and verbal after care instructions given. Patient and ambulance personnel. verbalizes understanding of instruction. spoke with Mechelle for kip.
--- NOTE | 2022-08-17 15:29 | NUR ---
CARMEN NUMBER IS [phone]
[2022-08-17 15:39] VITALS: BP 130/75
== END 2022-08-17 15:40 ==
LOC: ER 11:02
DX: S09.90XA Unspecified injury of head, initial encounter (principal); I11.0 Hypertensive heart disease with heart failure; I50.9 Heart failure, unspecified; I48.91 Unspecified atrial fibrillation; G89.29 Other chronic pain; Z79.899 Other long term (current) drug therapy; W06.XXXA Fall from bed, initial encounter; Y93.89 Activity, other specified; Y92.89 Other specified places as the place of occurrence of the external cause; Y99.8 Other external cause status
CPT/HCPCS: 70450-TC; 72125-TC